=== PATIENT | male | born 1935 | race Caucasian/White ===

== ENCOUNTER 2017-02-04 19:23 | Emergency (ER) | payer MEDICARE ==
--- NOTE | 2017-02-04 19:43 | Emergency Department Record ---
History of Present Illness - General Chief Complaint: Abdominal Pain Stated Complaint: CHEST PAIN Time Seen by Provider: 02/04/17 19:27 Source: Patient Mode of Arrival: Ambulatory Limitations: No limitations - History of Present Illness Initial Comments: 81 yo male presents to ED with a CC of a "gut ache" that radiates up to the chest. Patient describes his pain symptoms as a "pressure", reports that he has not had a BM in 3 days. Patient denies previous heart or lung problems, but does report history of ulcerative colitis with his last flare being several years ago. Patient denies fevers, chills, or recent illness, does report nausea and vomiting x 1. MD Complaint: Abdominal pain Onset/Timin -: Minutes(s) Location: Diffuse Severity: Moderate Quality: Fullness Consistency: Constant, Getting worse Worsens With: Eating Associated Symptoms: Vomiting - Related Data Home Medications Medication Instructions Recorded Confirmed Last Taken Aspirin [Ecotrin] 325 mg PO BID 02/04/17 02/04/17 Unknown Atorvastatin Calcium [Lipitor] 10 mg PO QHS 02/04/17 02/04/17 Unknown Calcium Carbonate/Vitamin D3 1 each PO DAILY 02/04/17 02/04/17 Unknown [Calcium 500-Vit D3 600 Tablet] Dexlansoprazole [Dexilant] 60 mg PO DAILY 02/04/17 02/04/17 Unknown Losartan/Hydrochlorothiazide 1 each PO DAILY 02/04/17 02/04/17 Unknown [Losartan-Hctz 50-12.5 mg Tab] Mesalamine [Apriso] 0.375 gm PO BID 02/04/17 02/04/17 Unknown Thiamine HCl [Vitamin B-1] 100 mg PO DAILY 02/04/17 02/04/17 Unknown Tolterodine Tartrate [Detrol LA] 4 mg PO DAILY 02/04/17 02/04/17 Unknown Topiramate [Topamax] 75 mg PO DAILY 02/04/17 02/04/17 Unknown Verapamil HCl [Verapamil ER] 120 mg PO BID 02/04/17 02/04/17 Unknown Vit C/Vit E AC/Lut/Copper/Zinc 1 tab PO DAILY 02/04/17 02/04/17 Unknown [PreserVision Lutein Softgel] Vitamin E 400 unit PO DAILY 02/04/17 02/04/17 Unknown Allergies Allergy/AdvReac Type Severity Reaction Status Date / Time No Known Drug Allergies Allergy Verified 08/13/15 16:20 Travel Screening - Travel/Exposure Within Last 30 Days Have you traveled within the last 30 days?: No Review of Systems Constitutional: Denies: Chills, Fever, Malaise, Night sweats Eyes: Denies: Eye discharge, Eye pain ENT: Denies: Congestion, Ear pain, Epistaxis Respiratory: Denies: Cough, Dyspnea Cardiovascular: Reports: Chest pain. Denies: Dyspnea on exertion Endocrine: Denies: Fatigue, Heat or cold intolerance Gastrointestinal: Reports: Abdominal pain, Constipation, Nausea, Vomiting Genitourinary: Denies: Incontinence, Retention Musculoskeletal: Denies: Arthralgia, Back pain, Gout, Joint swelling Skin: Denies: Bruising, Change in color Neurological: Denies: Abnormal gait, Confusion, Headache, Tingling Psychiatric: Denies: Anxiety Hematological/Lymphatic: Denies: Anemia, Blood Clots Past Medical History - SOCIAL HISTORY Smoking Status: Former smoker Alcohol Use: None Drug Use: None - RESPIRATORY Hx Respiratory Disorders: No - CARDIOVASCULAR Hx Cardio Disorders: Yes Hx CHF: Yes Hx Hypertension: Yes (CONTROLLED) Comment:: high cholesterol - NEURO Hx Neuro Disorders: Yes Hx of Migraines: Yes (since onset of topamax has very few magallanes) Hx Neuropathy: Yes (feet) - GI Hx GI Disorders: Yes Hx of Polyps: Yes (COLON) Comment:: ULCERATIVE COLITIS - Hx Genitourinary Disorders: No Comment:: occ leakage - ENDOCRINE Hx Endocrine Disorders: No - MUSCULOSKELETAL Hx Musculoskeletal Disorders: Yes Hx Arthritis: Yes (hips, knees and hands) - PSYCH Hx Psych Problems: No - HEMATOLOGY/ONCOLOGY Hx Hematology/Oncology Disorders: Yes Hx Cancer: Yes (skin-LLE melanoma) Family Medical History Any Significant Family History?: No Physical Exam - General General Appearance: Alert, Oriented x3, Cooperative, No acute distress (patient is resting comfortably on examination) Limitations: No limitations - Head Head exam: Atraumatic, Normocephalic, Normal inspection Head exam detail: negative: Abrasion, Contusion, Wells's sign, General tenderness, Hematoma, Laceration - Eye Eye exam: Normal appearance. negative: Conjunctival injection, Periorbital swelling, Periorbital tenderness, Scleral icterus - ENT Ear exam: negative: Auricular hematoma, Auricular trauma Nasal Exam: negative: Active bleeding, Discharge, Dried blood Mouth exam: negative: Drooling, Laceration, Tongue elevation - Neck Neck exam: Normal inspection. negative: Meningismus, Tenderness - Respiratory Respiratory exam: Normal lung sounds bilaterally. negative: Respiratory distress, Rhonchi, Stridor, Wheezes - Cardiovascular Cardiovascular Exam: Regular rate, Normal rhythm, Normal heart sounds - GI/Abdominal GI/Abdominal exam: Soft, Tenderness (mild, diffuse TTP on examiantion, no focal areas of tenderness, no rebound, no guarding symptoms). negative: Distended, Rebound, Rigid - Rectal Rectal exam: Deferred - exam: Deferred - Extremities Extremities exam: Normal inspection. negative: Calf tenderness, Pedal edema, Tenderness - Back Back exam: Denies: CVA tenderness (R), CVA tenderness (L) - Neurological Neurological exam: Alert, Normal gait, Oriented X3 - Psychiatric Psychiatric exam: Normal affect, Normal mood - Skin Skin exam: Normal color. negative: Abrasion Type of lesion: negative: abrasion Course Vital Signs 02/04/17 19:26 Temperature 97.6 F Pulse Rate 70 Pulse Rate [ 77 Pulse Ox Probe] Respiratory 18 Rate Blood Pressure 171/89 Blood Pressure 171/89 [Left Arm] Pulse Ox 97 - Reevaluation(s) Reevaluation #1: 02/04/17 19:38 EKG: NSR 77 RBBB, T wave inversion III, AVF Nonspecific ST changes V3-V6 Reevaluation #2: 02/04/17 19:42 Plan of care discussed with the patient, reports that his symptoms seem to originate in the abdomen. Will image the abdomen to exclude colitis/obstuction and obtain (2) sets of cardiac enzymes to exclude myocardial damage. Patient and SO agree with plan of care as discussed. Reevaluation #3: 02/04/17 20:56 Labs reviewed, Lipase 16136, potassium 3.1, labs are otherwise grossly unremarkable for an acute process. Potassium ordered for replacement. Patient is in CT currently. 02/04/17 20:59 Reevaluation #4: 02/04/17 21:47 CT Abdomen and Pelvis: Pancreatitis with gallstones/distended gallbladder present, no pericholecystic fluid is present, no wall thickening. renal cysts, 3.7 cm AAA. Reevaluation #5: 02/04/17 21:56 Patient and his SO updated on all results, would prefer transfer [facility] Case was discussed with Dr. Jacobo, will accept transfer. 02/04/17 22:30 Medical Decision Making - Lab Data Result diagrams: 02/04/17 19:30 02/04/17 19:30 Disposition Disposition: Transfer Clinical Impression: Hypokalemia, Gallstones Pancreatitis Qualifiers: Chronicity: acute Pancreatitis type: other Acute pancreatitis complication: unspecified Qualified Code(s): K85.80 - Other acute pancreatitis without necrosis or infection Disposition: Acute Care Hospital Transfer Transfer To: [facility] Reason For Transfer: Surgical Consultation, patient preference Accepting Physician: Dr. Taylor Time Discussed w/Accepting Physician: 22:30 Condition: (2) Stable Forms: Patient Portal Access Time of Disposition: 22:38
[2017-02-04 20:06] LABS: BASO % 0.6 % (0-6); EOS % 1.3 % (0-6); GRAN % 74.7 % (47-80); HEMOGLOBIN 15.3 gm/dl (14.0-18.0); LYMPH % 15.8 % (16-45); MEAN CELL VOLUME 98.9 fl (81-97); MEAN CORPUSCULAR HEMOGLOBIN 32.9 pg (27-33); MEAN CORPUSCULAR HGB CONC 33.3 g/dl (32-36); MEAN PLATELET VOLUME 10.3 fl (7.4-10.4); MONO % 7.6 % (0-9); PLATELET COUNT 259 K/uL (130-400); RED BLOOD COUNT 4.65 M/uL (4.40-5.70); RED CELL DISTRIBUTION WIDTH 13.4 % (11.5-14.5); WHITE BLOOD COUNT W/O DIFF 8.5 K/uL (4.2-12.2)
[2017-02-04 20:20] LABS: ALB/GLOB RATIO 1.4 (1.1-1.8); ALBUMIN 4.2 gm/dL (3.5-5.0); ALKALINE PHOSPHATASE 172 U/L (38-126); ALT/SGPT 45 U/L (21-72); ANION GAP 5.4 (7-16); AST/SGOT 64 U/L (17-59); BILIRUBIN,TOTAL 0.88 mg/dL (0.2-1.3); BLOOD UREA NITROGEN 22 mg/dL (9-20); CARBON DIOXIDE 25.6 mmol/L (22-30); CREATINE PHOSPHOKINASE 47 U/L (55-170); CREATININE 1.2 mg/dL (0.66-1.25); EST GLOMERULAR FILTRATION RATE > 60 ml/min; GLUCOSE,RANDOM 117 mg/dL (70-110); TOTAL PROTEIN 7.2 gm/dL (6.3-8.2)
[2017-02-04 20:32] LABS: URINE APPEARANCE CLEAR; URINE BILIRUBIN NEGATIVE (NEGATIVE); URINE BLOOD NEGATIVE (NEGATIVE); URINE COLOR YELLOW; URINE GLUCOSE (UA) NEGATIVE (NEGATIVE); URINE KETONE NEGATIVE (NEGATIVE); URINE LEUKOCYTE ESTERASE NEGATIVE (NEGATIVE); URINE NITRITE NEGATIVE (NEGATIVE); URINE PROTEIN NEGATIVE (NEGATIVE)
[2017-02-04 20:36] LABS: TROPONIN I < 0.012 ng/mL (0.00-0.034)
[2017-02-04] MEDS ORDERED: ONDANSETRON HCL IV 4 MG/2 ML VIAL IVP ONE (20:37)
[2017-02-04] MEDS ORDERED: MORPHINE SULFATE 5 MG/ML PFS IVP ONE ×2 (20:37→22:10)
[2017-02-04] MEDS ORDERED: POTASSIUM BICARB./CIT AC 25 MEQ EFF.TAB PO STA (20:57)
[2017-02-04 20:58] LABS: LIPASE 18039 U/L (23-300)
[2017-02-05] MEDS ORDERED: MORPHINE SULFATE 5 MG/ML PFS IVP ONE (01:45)
[2017-02-05] MEDS ORDERED: ONDANSETRON HCL IV 4 MG/2 ML VIAL IVP ONE (01:52)
--- NOTE | 2017-02-07 15:33 | CT SCAN REPORT ---
EXAM: CT SCAN ABDOMEN/PELVIS W CONTRAST HISTORY: ABDOMINAL PAIN. TECHNIQUE: CT of the abdomen and pelvis performed following intravenous contrast administration. 100 mL of Omnipaque-300 contrast is used for this examination. COMPARISON: None. FINDINGS: The lung bases are unremarkable. The gallbladder is distended. There are probably faint calcified gallstones within the dependent portion of the gallbladder. There are inflammatory changes seen throughout the pancreas suggesting pancreatitis. No pancreatic mass or pseudocyst seen. The common bile duct is not dilated. There is probably mild periportal edema. No hepatic mass. Spleen is unremarkable. There are no adrenal lesions seen. There is bilateral renal function. There are bilateral renal cysts. No renal mass or hydronephrosis. There are atherosclerotic changes in the abdominal aorta. There is an aneurysm of the distal abdominal aorta just above the aortic bifurcation. The maximum anterior/posterior dimension is approximately 3.8 cm. There is diverticulosis without CT evidence for diverticulitis. There is no pelvic mass, abscess, or adenopathy. There is no free air or free fluid identified. IMPRESSION: 1. THERE ARE INFLAMMATORY CHANGES IN THE PANCREAS SUGGESTING PANCREATITIS. NO PANCREATIC MASS OR PSEUDOCYST. 2. THE GALLBLADDER IS DISTENDED. THERE ARE PROBABLY FAINT CALCIFIED GALLSTONES IN THE GALLBLADDER. NO PERICHOLECYSTIC FLUID OR GALLBLADDER WALL THICKENING. 3. PROBABLE MILD PERIPORTAL EDEMA, NONSPECIFIC. 4. BILATERAL RENAL CYSTS. 5. 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 6. DIVERTICULOSIS WITHOUT CT EVIDENCE FOR DIVERTICULITIS. 7. NOT MENTIONED ABOVE, A FOCAL FAT DENSITY STRUCTURE IS SEEN ALONG THE DESCENDING PORTION OF THE DUODENUM MEASURING ABOUT 2.5 CM IN SIZE, POSSIBLY A LIPOMA. JOB NUMBER: [id number] MTDD
== END 2017-02-05 02:00 | disposition short-term general hospital (02) ==
LOC: ER 19:23
DX: K85.80 Other acute pancreatitis without necrosis or infection (principal); I50.9 Heart failure, unspecified; R11.10 Vomiting, unspecified; K85.10 Biliary acute pancreatitis without necrosis or infection; E87.6 Hypokalemia; K82.8 Other specified diseases of gallbladder; K51.90 Ulcerative colitis, unspecified, without complications; I10 Essential (primary) hypertension
CPT/HCPCS: 74177; 80053; 81003; 82550; 82553; 83690; 84484; 85025; 93005; 93010; 96374; 96375; 96376; 99284; 99285; J2405

== ENCOUNTER 2017-02-21 16:49 | Inpatient (IN) | payer MEDICARE ==
[2017-02-23] MEDS ORDERED: ALBUTEROL HFA 8 GM INHALER INH PRN (16:11)
[2017-02-23] MEDS ORDERED: VOLTAREN 1% TOP PRN (16:13)
[2017-02-23] MEDS ORDERED: ZINC OXIDE 28.35 GM TUBE TOP PRN (21:42)
[2017-02-23] MEDS: AMLODIPINE BESYLATE 5MG TAB PO SCH (22:36)
[2017-02-23] MEDS: PANTOPRAZOLE SODIUM 40 MG TABLET PO SCH (22:37)
[2017-02-23] MEDS: TOPIRAMATE 25MG TABLET PO SCH (22:37)
[2017-02-23] MEDS: DIPHENHYDRAMINE HCL 25 MG CAPSULE PO PRN (22:38)
[2017-02-24] MEDS ORDERED: MULTIVITAMINS/MINERALS TABLET PO SCH (10:00)
--- NOTE | 2017-02-24 10:00 | Rehab Evaluation ---
Patient Information - Patient Information Diagnosis: Deconditioning due to lengthy stay in hospital for acute pancreatitis Ordered Treatment: OT Evaluate and Treat Status: Initial Evaluation History: Detail (Patient admitted secondary to deconditioning after stay at [facility] lasting 02/05/17-02/23/17.) Past Medical/Surgical Hx: PAST MEDICAL/SURGICAL HISTORY Past Surgical History KNEE SCOPE-Right NASAL SX R RTC REPAIR (REFLEX SYMPATHETIC DYSTOPHY) C-SCOPE PMH - Respiratory Hx Respiratory Disorders No PMH - Cardiovascular Hx Cardiovascular Disorders Yes Hx Congestive Heart Failure Yes Hx Hypertension Yes: CONTROLLED Hx of Migraines Yes: since onset of topamax has very few magallanes Comment: high cholesterol PMH - Neuro Hx Neurological Disorders Yes Hx Neuropathy Yes: feet Hx Seizures No PMH - GI Hx Gastrointestinal Disorders Yes Comment: ULCERATIVE COLITIS PMH - Hx Genitourinary Disorders No Comment: occ leakage PMH - Endocrine Hx Endocrine Disorders No PMH - Musculoskeletal Hx Musculoskeletal Disorders Yes Hx Arthritis Yes: hips, knees and hands PMH - Psych Hx Psychiatric Problems No PMH - Hematology/Oncology Hx Hematology/Oncology Yes Disorders Hx Cancer Yes: skin-LLE melanoma Premorbid Status: Detail (Patient was independent with all ADLs 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 He amb. without device and has no AD at home.) Social History: Detail (Patient lives with spouse in a 1-story house with finished basement and 2-3 steps to enter home. Laundry is in the basement but spouse is responsible for this. Patient does use basement. There is a bathroom w / walk-in shower in the basement but patient primarily uses the tub/shower combo with curtain enclosure on main level. Patient stands to shower using fixed shower head. There are grab bars in shower but none around standard toilet. Patient is responsible for outdoor yard work, snow removal, and lawn care. Patient has supportive , daughter (lives in [place]), and son (lives in [place], [place]).) Precautions: [place], Fall - Time With Patient Total Time Spent With Patient (Min): 25 Treatment Procedures: Detail (OT Evaluation - LOW) Subjective Information - Subjective Information Per Patient Objective Data - Pain Pain Present: No Pain Intensity: 0 Pain Scale Used: Numeric (1 - 10) - Mental Status Patient Orientation: Oriented x3 - Visual Perception Appears within normal limits for therapeutic activities - ROM Within normal limits (BUE's (Patient had Rotator Cuff Repair sx about 5 years ago on the Right shld)) - Strength/Tone Not within normal limits (Patient grossly 4/5 for Eddie shld flex/abd, elbow flex/ ext, wrist flex/ext. Mild weakness in Eddie gross grasp.) - Bed Mobility Independent - Transfers Independent - Balance Balance Sitting: Good - Sensation Intact - Gait Detail (Patient amb 65 feet without AD and with CGA. No LOB or c/o dizziness. Patient appeared stable during amb. Feel patient could amb with supervision but will allow PT to further evaluate.) - ADL's/IADL's Detail (Patient able to don slip on sandals ind. after initial setup.) Therapy Assessment - Therapy Assessment Detail (Patient doing well. He presents with generalized BUE weakness and decreased endurance for ADLs. Feel he would benefit from skilled OT to further evaluate safety with ADLs and for overall initiation and establishment of UE strengthening HEP.) Problem List - Problem List Occupational Therapy Problem List: Detail (1. Decreased endurance to complete ADLs 2. BUE weakness 3. B Gross grasp weakness) Goals - Goals Occupational Therapy Goals: 1. Patient to be Ind. with LB drsg. 2. Patient to complete ADLs w/o c/o fatigue or need for RB's. 3. Patient to be Ind w/ BUE HEP Prognosis - Prognosis Good Plan - Plan Occupational Therapy Plan: Patient to be seen by OT to further evaluate safety with ADLs and for establishment of BUE HEP. Patient to be seen by OT 2-4x a week M-F.
[2017-02-24] MEDS: CALCIUM CARB/VITAMIN D 500MG/200IU PO SCH (11:44)
[2017-02-24] MEDS: OXYBUTYNIN CHLORIDE 5MG TABLET PO SCH ×2 (11:47→21:28)
[2017-02-24] MEDS: FUROSEMIDE 20 MG TABLET PO SCH (11:47)
[2017-02-24] MEDS: PANTOPRAZOLE SODIUM 40 MG TABLET PO SCH ×2 (11:48→21:28)
[2017-02-24] MEDS: LOSARTAN POTASSIUM 100 MG TABLET PO SCH (11:48)
[2017-02-24] MEDS: THIAMINE MONONITRATE 100 MG TABLET PO SCH (11:48)
--- NOTE | 2017-02-24 12:48 | History & Physical ---
History of Present Illness - Date Date of Service for History & Physical: 02/24/17 - History of Present Illness Admitting Diagnosis: Deconditioning due to Biliary Pancreatitis History of Present Illness: 81 y/o male admitted to [facility] for deconditioning following hospitalization for acute biliary pancreatitis and mesenteric aneurysm rupture. Past medical history includes CHF, HTN, migraines, peripheral neuropathy, UC, occasional urine incontinence, arthritis, LLE melanoma Past Surgical History KNEE SCOPE-Right NASAL SX R RTC REPAIR (REFLEX SYMPATHETIC DYSTOPHY) C-SCOPE Prior to arrival was transferred form [facility] ED 02/05/17 for abdominal pain and significantly elevated lipase. While at [facility] Megan Macario was diagnosed with acute pancreatitis and gall stones per CT scan. Initial lipase 18,000. Does not drink ETOH, has never had pancreatitis before, is not diabetic. 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 His stay was complicated by episode of hypotension and sudden drop in Hgb. 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 Bleeding and Hgb improved spontaneously. Was nutritionally supplemented with TPN and advanced to low fat diet. Underwent EGD 02/22 for increase in bilirubin and lipase levels which showed 3 small ulcers in stomach that were biopsied and sent to pathology. Plan to repeat EGD with EUS/ ERCP in 2 week with potential of lap cherie. Labs at discharge Hgb 9.3, Lipase 111, alk phos 278, total bilirubin 2.o, protein 4.5, albumin 2.6, AST 64, ALT 68, BUN 22, Cr 1.02 Goal of care: therapy with return to prevoius independent function at home with his . 02/24/17- resting in bed comfortably, denies pain. Does report continues to have loose stools twice daily, appetite is slowly improving but not back to 100%. Is feeling weak but reports overall feels better day by day. PCP: Dr Allen General surgeon: Dr Carmen General - Cognitive Patterns Speech: Soft Thought Process: Intact Thought Content: Normal Orientation: Oriented x3 Brief Interview for Mental Status Score: 14 - Communication Preferred Language?: Yemeni Level of Education: High School Preferred Method of Learning: Seeing, Doing, Reading Comprehension Ability: No Impairment Able to Read: Yes Able to Write: Yes Select best description of speech pattern: Clear Speech Ability to express ideas and wants: Understood Understanding verbal content: Understands - Mood and Behavior Patterns Appearance: Well Groomed Mood: Normal Attitude: Cooperative Motor Activity: Calm Affect: Appropriate Hallucinations: Denies - Patient Health Questionnaire (PHQ-9) Little interest or pleasure in doing things frequency: Never or 1 day Feeling down, depressed, or hopeless frequency: 2-6 days Trouble falling/staying asleep or sleeping to much frequency: 12-14 days Feeling tired or having little energy frequency: 12-14 days Poor appetite or overeating frequency: 12-14 days Feeling bad about yourself frequency: Never or 1 day Trouble concentrating on things frequency: 2-6 days Moving/Speaking slowly or fidgety/restless frequency: Never or 1 day Thoughts that you would be better off frequency: Never or 1 day Affect of above symptoms on daily life: Not difficult at all - Psychosocial Well-Being Usual Living Arrangement: Spouse Relationship Status: Current and Past Employment History: Retired 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 Verbalizes Interest in Activities During Stay: No Specify Interests: Still unsure. Personality: Introverted States they do not want to participate in group activities: Yes Patient Involved in the Community: Yes Describe Involvement: On Foundation/Board of [facility]. Patients Leisure Activities Prior to Admission: Yardwork/golf Plans to Return to the Following Leisure Activities: Hopefully. - Physical Functioning Activity Level: Up as tolerated Turning: Self ad ortiz ROM Ability: Within Normal Limits Assistive Devices: None Ambulation Ability: Independent Bed Mobility: Independent Transfer Ability: Independent Bathing Ability: Needs Assist Personal Hygiene: Needs Assist Dressing Ability: Needs Assist Eating (Feeding) Ability: Independent Toileting Ability: Independent Administer Own Medication: Independent - Continence Bowel Pattern: Diarrhea Bladder Pattern: Dribbling, Frequency Urinary Incontinence: Urge - Dental Status Unable to examine: No Broken or loosely fitting full or partial dentures: No No natural teeth or tooth fragment(s) (edentulous): No Abnormal mouth tissue (ulcers, masses, oral lesions, etc.): No Obvious or likely cavity or broken natural teeth: No Inflamed or bleeding gums or loose natural teeth: No Mouth/facial pain, discomfort or difficulty chewing: No - Nutrition Screening Poor oral intake > 1 week: Yes Unplanned weight loss in specified time frame: Yes Nutrition Support via tube feedings or parenteral nutrition: Yes Pressure Ulcer: No Significantly underweight define as BMI <18.5 kg/m2: No Albumin <2.5mg/dL: No Persistent nausea/vomiting/diarrhea >3 days: No Difficulty chewing/swallowing/mouth sores: No Admitting Diagnosis: No Nutrition Risk Score: High Risk Review of Systems Constitutional: Reports: Weakness ENT: Denies: Congestion Respiratory: Denies: Cough Cardiovascular: Denies: Chest pain Gastrointestinal: Reports: Diarrhea. Denies: Abdominal pain, Nausea, Vomiting Genitourinary: Reports: Incontinence. Denies: Dysuria, Frequency Musculoskeletal: Denies: Arthralgia, Back pain, Myalgia Skin: Denies: Rash Neurological: Reports: Weakness. Denies: Headache Psychiatric: Denies: Anxiety, Depression Past Medical History - SOCIAL HISTORY Smoking Status: Former smoker Alcohol Use: Rare Drug use: None - SURGICAL HISTORY Past Surgical History: KNEE SCOPE-Right. NASAL SX. R RTC REPAIR (REFLEX SYMPATHETIC DYSTOPHY). C-SCOPE - RESPIRATORY Hx Respiratory Disorders: No - CARDIOVASCULAR Hx Cardio Disorders: Yes Hx CHF: Yes Hx Hypertension: Yes (CONTROLLED) Comment:: high cholesterol - NEURO Hx Seizures: No - GI Hx GI Disorders: Yes Hx of Polyps: Yes (COLON) Comment:: ULCERATIVE COLITIS - Hx Genitourinary Disorders: No Comment:: occ leakage - ENDOCRINE Hx Endocrine Disorders: No - MUSCULOSKELETAL Hx Musculoskeletal Disorders: Yes Hx Arthritis: Yes (hips, knees and hands) - PSYCH Hx Psych Problems: No - HEMATOLOGY/ONCOLOGY Hx Hematology/Oncology Disorders: Yes Hx Cancer: Yes (skin-LLE melanoma) Family Medical History Any Significant Family History?: No Hx Heart Disease: Father, Mother Hx Stroke: Mother H&P Meds/Allergies - Allergies Allergies: Allergies Allergy/AdvReac Type Severity Reaction Status Date / Time No Known Drug Allergies Allergy Verified 08/13/15 16:20 - Home Medications Home Medications Medication Instructions Recorded Confirmed Last Taken Aspirin [Ecotrin] 325 mg PO BID 02/04/17 02/04/17 Unknown Atorvastatin Calcium [Lipitor] 10 mg PO QHS 02/04/17 02/04/17 Unknown Calcium Carbonate/Vitamin D3 1 each PO DAILY 02/04/17 02/04/17 Unknown [Calcium 500-Vit D3 600 Tablet] Dexlansoprazole [Dexilant] 60 mg PO DAILY 02/04/17 02/04/17 Unknown Losartan/Hydrochlorothiazide 1 each PO DAILY 02/04/17 02/04/17 Unknown [Losartan-Hctz 50-12.5 mg Tab] Mesalamine [Apriso] 0.375 gm PO BID 02/04/17 02/04/17 Unknown Thiamine HCl [Vitamin B-1] 100 mg PO DAILY 02/04/17 02/04/17 Unknown Tolterodine Tartrate [Detrol LA] 4 mg PO DAILY 02/04/17 02/04/17 Unknown Topiramate [Topamax] 75 mg PO DAILY 02/04/17 02/04/17 Unknown Verapamil HCl [Verapamil ER] 120 mg PO BID 02/04/17 02/04/17 Unknown Vit C/Vit E AC/Lut/Copper/Zinc 1 tab PO DAILY 02/04/17 02/04/17 Unknown [PreserVision Lutein Softgel] Vitamin E 400 unit PO DAILY 02/04/17 02/04/17 Unknown - Active Medications Active Medications: Current Medications Albuterol Sulfate (Ventolin Hfa) 2 puff INH Q6H PRN PRN Reason: WHEEZING Amlodipine Besylate (Norvasc) 10 mg PO QHS [facility] Last Admin: 02/23/17 22:36 Dose: 10 mg Calcium/Vitamin D (Calcium 500+D Tablet) 1 tab PO DAILY [facility] Last Admin: 02/24/17 11:44 Dose: 1 tab Diphenhydramine HCl (Benadryl Capsule) 25 mg PO QHS PRN PRN Reason: INSOMNIA Last Admin: 02/23/17 22:38 Dose: 25 mg Furosemide (Lasix) 20 mg PO DAILY [facility] Last Admin: 02/24/17 11:47 Dose: 20 mg Losartan Potassium (Losartan Potassium) 100 mg PO DAILY [facility] Last Admin: 02/24/17 11:48 Dose: 100 mg Multivitamins/Minerals (Centrum) 1 tab PO DAILY [facility] Last Admin: 02/24/17 11:46 Dose: 1 tab Oxybutynin Chloride (Ditropan) 5 mg PO BID [facility] Last Admin: 02/24/17 11:47 Dose: 5 mg Pantoprazole Sodium (Protonix) 40 mg PO BID [facility] Last Admin: 02/24/17 11:48 Dose: 40 mg Patient Own Med: (Voltaren 1% Gel) 2 each TOP QID PRN PRN Reason: BACK PAIN Topiramate (Topiramate) 75 mg PO QHS [facility]SE[facility] Last Admin: 02/23/17 22:37 Dose: 75 mg Zinc Oxide (Desitin) 28.35 gm TOP BID PRN PRN Reason: RASH Physical Exam - Vital Signs Vital Signs: Vital Signs - Last 24 Hrs Temp Pulse Resp BP Pulse Ox 02/24/17 10:00 98.0 F 76 16 121/74 97 02/23/17 20:04 97.9 F 84 16 139/81 97 - General General Appearance: Alert, Oriented x3, No acute distress Limitations: No limitations - Head Head exam: Atraumatic - Eye Eye exam: Normal appearance, Periorbital swelling - ENT ENT exam: Normal exam, Mucous membranes moist, Normal external ear exam, Normal orophraynx, TM's normal bilaterally Ear exam: Normal external inspection. negative: External canal tenderness Nasal Exam: Normal inspection. negative: Discharge, Sinus tenderness Mouth exam: Normal external inspection, Tongue normal Teeth exam: Normal inspection. negative: Dental caries Throat exam: Normal inspection. negative: Tonsillar erythema, Tonsillar exudate - Respiratory Respiratory exam: Normal lung sounds bilaterally - Cardiovascular Cardiovascular Exam: Regular rate, Normal rhythm, Normal heart sounds Peripheral Pulses: 2+: Dorsalis Pedis (R), Dorsalis Pedis (L) - GI/Abdominal GI/Abdominal exam: Soft, Hyperactive bowel sounds. negative: Tenderness - Rectal Rectal exam: Deferred - exam: Deferred - Extremities Extremities exam: Normal inspection, Full ROM, Normal capillary refill. negative: Tenderness - Back Back exam: Reports: Normal inspection, Full ROM. Denies: Muscle spasm, Rash noted, Tenderness - Neurological Neurological exam: Alert, CN II-XII intact, Oriented X3 - Psychiatric Psychiatric exam: Normal affect, Normal mood - Skin Skin exam: Dry, Intact, Normal color, Warm Discharge Potential - Discharge Needs Community Services Used Prior to Admission: None Patient Discharge Plan Description: Return Home Community Services Needed at Discharge: None Plan - Swing Bed Certification Initial Certification Due: 02/23/17 14 Day Re-Cert Due: 03/09/17 44 Day Re-Cert Due: 04/08/17 74 Day Re-Cert Due: 05/08/17 - Detailed Diagnosis and Plan (1) Generalized weakness Current Visit: Yes Status: Acute Base Code: R53.1 - WEAKNESS Comment: [birth year]22 y/o male admitted for generalized weakbness after 3 week hospitalization at [facility] for acute biliary pancreatitis complicated by mesenteric rupture, anemia, hypotension and need for short term TPN nutrition - PT/OT - nursing to encourage frequent ambulation - recheck CBC/CMP/total bilirubin to trend - dietary consult for low protein/albumin. Did receive TPN for short time at [facility] - follow up with Dr Carmen in 2 weeks for repeat EGD/ERCP and potential for lap cherie - goals of care to return home to independent function, lives with (2) Protein calorie malnutrition Current Visit: Yes Status: Acute Base Code: E46 - UNSPECIFIED PROTEIN- CALORIE MALNUTRITION Comment: [birth year]81 y/o male admitted for generalized weakbness after 3 week hospitalization at [facility] for acute biliary pancreatitis complicated by mesenteric rupture, anemia, hypotension and need for short term TPN nutrition - PT/OT - nursing to encourage frequent ambulation - recheck CBC/CMP/total bilirubin to trend - dietary consult for low protein/albumin. Did receive TPN for short time at [facility] - follow up with Dr Carmen in 2 weeks for repeat EGD/ERCP and potential for lap cherie - goals of care to return home to independent function, lives with (3) Pancreatitis Current Visit: No Status: Acute Qualifiers: Chronicity: acute Pancreatitis type: other Acute pancreatitis complication: unspecified Qualified Code(s): K85.80 - Other acute pancreatitis without necrosis or infection Base Code: K85.90 - ACUTE PANCREATITIS WITHOUT NECROSIS OR INFECTION, UNSP Comment: [birth year]81 y/o male admitted for generalized weakbness after 3 week hospitalization at [facility] for acute biliary pancreatitis complicated by mesenteric rupture, anemia, hypotension and need for short term TPN nutrition - PT/OT - nursing to encourage frequent ambulation - recheck CBC/CMP/total bilirubin to trend - dietary consult for low protein/albumin. Did receive TPN for short time at [facility] - follow up with Dr Carmen in 2 weeks for repeat EGD/ERCP and potential for lap cherie - follow up [facility] 2 weeks - goals of care to return home to independent function, lives with (4) HTN (hypertension) Current Visit: Yes Status: Acute Base Code: I10 - ESSENTIAL (PRIMARY) HYPERTENSION Comment: 02/24/17- hypotensive episode in hospital now resolved. Continue home meds - keep SBP <140 - continue norvasc, ARB, Lasix (5) DVT prophylaxis Current Visit: Yes Status: Acute Base Code: [id number] - Comment: 02/24/17- nursing to encourage frequent ambulation (6) Full code status Current Visit: Yes Status: Acute Base Code: Z78.9 - OTHER SPECIFIED HEALTH STATUS Comment: 02/24/17- will remain full code during this hospitalization
--- NOTE | 2017-02-24 13:15 | Rehab Evaluation ---
Patient Information - Patient Information Diagnosis: Deconditioning due to lengthy stay in hospital for acute pancreatitis Ordered Treatment: PT Evaluate and Treat Status: Initial Evaluation Surgery: No History: Detail (Patient admitted secondary to deconditioning after stay at [facility] lasting 02/05/17-02/23/17. 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.) Past Medical/Surgical Hx: PAST MEDICAL/SURGICAL HISTORY Past Surgical History KNEE SCOPE-Right NASAL SX R RTC REPAIR (REFLEX SYMPATHETIC DYSTOPHY) C-SCOPE PMH - Respiratory Hx Respiratory Disorders No PMH - Cardiovascular Hx Cardiovascular Disorders Yes Hx Congestive Heart Failure Yes Hx Hypertension Yes: CONTROLLED Hx of Migraines Yes: since onset of topamax has very few magallanes Comment: high cholesterol PMH - Neuro Hx Neurological Disorders Yes Hx Neuropathy Yes: feet Hx Seizures No PMH - GI Hx Gastrointestinal Disorders Yes Comment: ULCERATIVE COLITIS PMH - Hx Genitourinary Disorders No Comment: occ leakage PMH - Endocrine Hx Endocrine Disorders No PMH - Musculoskeletal Hx Musculoskeletal Disorders Yes Hx Arthritis Yes: hips, knees and hands PMH - Psych Hx Psychiatric Problems No PMH - Hematology/Oncology Hx Hematology/Oncology Yes Disorders Hx Cancer Yes: skin-LLE melanoma Premorbid Status: Detail (Patient was independent with all ADLs and IADLs [employer]. He amb. without device and has no AD at home.) Social History: Detail (Patient lives with spouse in a 1-story house with finished basement and 2-3 steps to enter home. Laundry is in the basement but spouse is responsible for this. Patient does use basement. There is a bathroom w / walk-in shower in the basement but patient primarily uses the tub/shower combo with curtain enclosure on main level. Patient stands to shower using fixed shower head. There are grab bars in shower but none around standard toilet. Patient is responsible for outdoor yard work, snow removal, and lawn care. Patient has supportive , daughter (lives in [place]), and son (lives in [place], [place]).) Precautions: Icard, Fall - Time With Patient Total Time Spent With Patient (Min): 30 Treatment Procedures: Detail (PT Evaluation) Subjective Information - Subjective Information Per Patient (Pt lying reclined in bed upon arrival, awake/alert. Cooperative for evaluation.) Objective Data - Pain Pain Present: No - Mental Status Patient Orientation: Oriented x3 - Visual Perception Appears within normal limits for therapeutic activities - ROM Within normal limits (In hips, knees and ankles. See OT evaluation for UE ROM.) - Strength/Tone Not within normal limits (4/5 strength in B hip flexion, abduction, adduction; 3 +/5 in B hip extension; 4+/5 in B knee flexion and extension, B ankle df.) - Coordination Appears within normal limits for therapeutic activities - Bed Mobility Independent - Transfers Independent - Balance Balance Sitting: Good Balance Standing: Good (50/56 on Ramirez Balance test, difficulty w/tandem stance and single limb stance; pivot turn 360 degrees in more than 4 seconds.) - Sensation Deficit (Neuropathy in B feet.) - Gait Detail (Ambulated w/SBA w/o assistive device about 50+ feet w/o LOB.) Therapy Assessment - Therapy Assessment Detail (Pt exhibits mild strength impairments of B proximal LE's, decreased activity tolerance consistent w/prolonged hospitalization. He is a good candidate for inpatient rehabilitation.) Patient Education - Patient Education Teaching Topic: Exercise/Activity Response: Reinforcement Needed, Verbalize Understanding Teaching Method: Discussion Teaching Recipient: Patient Barriers To Learning: None Problem List - Problem List Physical Therapy Problem List: Detail (1. Proximal LE weakness 2. Impaired activity tolerance 3. Difficulty w/higher level balance tasks.) Occupational Therapy Problem List: Detail (1. Decreased endurance to complete ADLs 2. BUE weakness 3. B Gross grasp weakness) Goals - Goals Physical Therapy Goals: 1. Independent w/basic HEP. 2. Exhibit 4+/5 strength in B proximal LE muscle groups for stability w/ambulation. 3. Safely and independently ambulate 300 feet w/o assistive device, w/o undue fatigue. 4. Tolerate 20 minutes of therapeutic exercise w/o undue fatigue. Occupational Therapy Goals: 1. Patient to be Ind. with LB drsg. 2. Patient to complete ADLs w/o c/o fatigue or need for RB's. 3. Patient to be Ind w/ BUE HEP Prognosis - Prognosis Good Plan - Plan Physical Therapy Plan: Pt to be seen 1-2 times daily M-F for therapeutic exercise for LE strengthening, gait and balance training, endurance training to facilitate safe return to home environment. Occupational Therapy Plan: Patient to be seen by OT to further evaluate safety with ADLs and for establishment of BUE HEP. Patient to be seen by OT 2-4x a week M-F.
[2017-02-24] MEDS: PSYLLIUM HUSK/ASPARTAME 3.4 GM POWD.PACK PO SCH (16:16)
[2017-02-24] MEDS: APRISO 0.375 GM PO SCH (16:17)
--- NOTE | 2017-02-24 17:36 | Physical Therapy Tx Note ---
Physical Therapy Tx Note - Treatment Note Tolerated: Good Total Time Spent With Patient: 35 Physical Therapy Tx Note: Detail (Pt reclined in bed upon arrival, awake and cooperative for therapy. Performed 10 reps each of supine SLR, hip adduction w/ pillow, seated LAQ, hamstring curls w/red theraband, hip abduction w/red theraband. Ambulated w/CGA/SBA from bedside to nrsg station and return to bedside (about 130 feet) w/o assistive device. Performed 10 reps each of standing hip flexion, hip abduction, hip extension, knee flexion, heel raises, and toe raises. Returned to bed independently. Reported mild fatigue. Issued written exercise program to do over weekend, verbalized good understanding. Encouraged frequent.) Physical Therapy Problem List: Detail (1. Proximal LE weakness 2. Impaired activity tolerance 3. Difficulty w/higher level balance tasks.) Physical Therapy Goals: 1. Independent w/basic HEP. 2. Exhibit 4+/5 strength in B proximal LE muscle groups for stability w/ambulation. 3. Safely and independently ambulate 300 feet w/o assistive device, w/o undue fatigue. 4. Tolerate 20 minutes of therapeutic exercise w/o undue fatigue. Prognosis: Good Physical Therapy Plan: Pt to be seen 1-2 times daily M-F for therapeutic exercise for LE strengthening, gait and balance training, endurance training to facilitate safe return to home environment.
[2017-02-24] MEDS: TOPIRAMATE 25MG TABLET PO SCH (21:27)
[2017-02-24] MEDS: DIPHENHYDRAMINE HCL 25 MG CAPSULE PO PRN (21:27)
[2017-02-24] MEDS: AMLODIPINE BESYLATE 5MG TAB PO SCH (21:28)
[2017-02-24] MEDS: PRESERVISION PO SCH (21:28)
[2017-02-25] MEDS: OXYBUTYNIN CHLORIDE 5MG TABLET PO SCH ×2 (10:07→21:08)
[2017-02-25] MEDS: THIAMINE MONONITRATE 100 MG TABLET PO SCH (10:07)
[2017-02-25] MEDS: PSYLLIUM HUSK/ASPARTAME 3.4 GM POWD.PACK PO SCH (10:07)
[2017-02-25] MEDS: APRISO 0.375 GM PO SCH ×2 (10:07→21:11)
[2017-02-25] MEDS: LOSARTAN POTASSIUM 100 MG TABLET PO SCH (10:07)
[2017-02-25] MEDS: CALCIUM CARB/VITAMIN D 500MG/200IU PO SCH (10:07)
[2017-02-25] MEDS: FUROSEMIDE 20 MG TABLET PO SCH (10:07)
[2017-02-25] MEDS: PANTOPRAZOLE SODIUM 40 MG TABLET PO SCH ×2 (10:07→21:08)
[2017-02-25] MEDS: PRESERVISION PO SCH ×2 (10:08→21:11)
[2017-02-25] MEDS: AMLODIPINE BESYLATE 5MG TAB PO SCH (21:08)
[2017-02-25] MEDS: TOPIRAMATE 25MG TABLET PO SCH (21:09)
[2017-02-25] MEDS: DIPHENHYDRAMINE HCL 25 MG CAPSULE PO PRN (21:10)
[2017-02-26] MEDS: OXYBUTYNIN CHLORIDE 5MG TABLET PO SCH ×2 (09:58→21:15)
[2017-02-26] MEDS: CALCIUM CARB/VITAMIN D 500MG/200IU PO SCH (09:58)
[2017-02-26] MEDS: LOSARTAN POTASSIUM 100 MG TABLET PO SCH (09:58)
[2017-02-26] MEDS: FUROSEMIDE 20 MG TABLET PO SCH (09:58)
[2017-02-26] MEDS: PSYLLIUM HUSK/ASPARTAME 3.4 GM POWD.PACK PO SCH (09:59)
[2017-02-26] MEDS: PANTOPRAZOLE SODIUM 40 MG TABLET PO SCH ×2 (09:59→21:18)
[2017-02-26] MEDS: THIAMINE MONONITRATE 100 MG TABLET PO SCH (10:00)
[2017-02-26] MEDS: APRISO 0.375 GM PO SCH ×2 (10:04→21:17)
[2017-02-26] MEDS: PRESERVISION PO SCH ×2 (10:04→21:18)
[2017-02-26] MEDS: AMLODIPINE BESYLATE 5MG TAB PO SCH (21:15)
[2017-02-26] MEDS: TOPIRAMATE 25MG TABLET PO SCH (21:20)
[2017-02-26] MEDS: DIPHENHYDRAMINE HCL 25 MG CAPSULE PO PRN (21:23)
[2017-02-27 06:19] LABS: BASO % 0.6 % (0-6); EOS % 2.5 % (0-6); GRAN % 64.6 % (47-80); HEMATOCRIT 33.4 % (42.0-52.0); HEMOGLOBIN 10.8 gm/dl (14.0-18.0); LYMPH % 22.7 % (16-45); MEAN CELL VOLUME 100.6 fl (81-97); MEAN CORPUSCULAR HEMOGLOBIN 32.5 pg (27-33); MEAN CORPUSCULAR HGB CONC 32.3 g/dl (32-36); MEAN PLATELET VOLUME 9.8 fl (7.4-10.4); MONO % 9.6 % (0-9); PLATELET COUNT 237 K/uL (130-400); RED BLOOD COUNT 3.32 M/uL (4.40-5.70); RED CELL DISTRIBUTION WIDTH 15.3 % (11.5-14.5); WHITE BLOOD COUNT W/O DIFF 4.9 K/uL (4.2-12.2)
[2017-02-27 06:32] LABS: ALB/GLOB RATIO 1.1 (1.1-1.8); ALKALINE PHOSPHATASE 217 U/L (38-126); ALT/SGPT 69 U/L (21-72); ANION GAP 3.6 (7-16); AST/SGOT 56 U/L (17-59); BILIRUBIN,TOTAL 1.91 mg/dL (0.2-1.3); BLOOD UREA NITROGEN 19 mg/dL (9-20); CARBON DIOXIDE 25.4 mmol/L (22-30); CREATININE 1.2 mg/dL (0.66-1.25); EST GLOMERULAR FILTRATION RATE > 60 ml/min; GLUCOSE,RANDOM 99 mg/dL (70-110); TOTAL PROTEIN 5.8 gm/dL (6.3-8.2)
--- NOTE | 2017-02-27 08:24 | Occupational Therapy Tx Note ---
Occupational Therapy Tx Note - Treatment Note Tolerated: Good Total Time Spent With Patient: 25 Occupational Therapy Treatment Note: Detail (Pt awake upon arrival and dressed ind. per subjective report. He stated having bowel issues w/ upset stomach and loss of appetite but willing to participate in therapy. Ind w/ oral care, toilet H and clothing management. Patient ambulating Ind. throughout room without AD. States he ambulated around the inside of the hospital over the weekend. Pt was instructed and demo'd understanding of theraband ex's for BUE' s. He completed 2x10 Eddie of shld flex, shld abd, shld ext, shld add using green theraband. Cont to work on BUE strength and overall endurance.) Occupational Therapy Problem List: Detail (1. Decreased endurance to complete ADLs 2. BUE weakness 3. B Gross grasp weakness) Occupational Therapy Goals: 1. Patient to be Ind. with LB drsg. 2. Patient to complete ADLs w/o c/o fatigue or need for RB's. 3. Patient to be Ind w/ BUE HEP Prognosis: Good Occupational Therapy Plan: Patient to be seen by OT to further evaluate safety with ADLs and for establishment of BUE HEP. Patient to be seen by OT 2-4x a week M-F.
[2017-02-27] MEDS: PSYLLIUM HUSK/ASPARTAME 3.4 GM POWD.PACK PO SCH (09:12)
[2017-02-27] MEDS: FUROSEMIDE 20 MG TABLET PO SCH (09:12)
[2017-02-27] MEDS: THIAMINE MONONITRATE 100 MG TABLET PO SCH (09:12)
[2017-02-27] MEDS: PANTOPRAZOLE SODIUM 40 MG TABLET PO SCH ×2 (09:12→21:41)
[2017-02-27] MEDS: OXYBUTYNIN CHLORIDE 5MG TABLET PO SCH ×2 (09:12→21:42)
[2017-02-27] MEDS: CALCIUM CARB/VITAMIN D 500MG/200IU PO SCH (09:12)
[2017-02-27] MEDS: LOSARTAN POTASSIUM 100 MG TABLET PO SCH (09:12)
[2017-02-27] MEDS: PRESERVISION PO SCH ×2 (09:21→21:43)
[2017-02-27] MEDS: APRISO 0.375 GM PO SCH ×2 (09:21→21:42)
--- NOTE | 2017-02-27 11:41 | Physical Therapy Tx Note ---
Physical Therapy Tx Note - Treatment Note Tolerated: Good Total Time Spent With Patient: 30 Physical Therapy Tx Note: Detail (Pt asleep in bed upon arrival; awakened easily. Requested bathroom before exercise. Performed 10 reps each of standing LE ex: hip flexion, extension, abduction, knee flexion, heel raises, toe raises, mini-squats. Ambulated from room to near E.D., w/o assistive device , independently, about 335 feet. Took another bathroom break. Performed seated marching, LAQ w/red theraband, hamstring curls w/red theraband, hip abduction w/red theraband, hip adduction w/ball, x 10 reps each B. Independently donned/doffed shoes, independent back to bed. Left in bed w/ call light in reach.) Physical Therapy Problem List: Detail (1. Proximal LE weakness 2. Impaired activity tolerance 3. Difficulty w/higher level balance tasks.) Physical Therapy Goals: 1. Independent w/basic HEP. 2. Exhibit 4+/5 strength in B proximal LE muscle groups for stability w/ambulation. 3. Safely and independently ambulate 300 feet w/o assistive device, w/o undue fatigue. 4. Tolerate 20 minutes of therapeutic exercise w/o undue fatigue. Prognosis: Good Physical Therapy Plan: Pt to be seen 1-2 times daily M-F for therapeutic exercise for LE strengthening, gait and balance training, endurance training to facilitate safe return to home environment.
--- NOTE | 2017-02-27 14:33 | Physical Therapy Tx Note ---
Physical Therapy Tx Note - Treatment Note Tolerated: Good Total Time Spent With Patient: 15 Physical Therapy Tx Note: Detail (Patient states tired this afternoon. Patient transferred sit to and from stand independently. Patinet ambulated 13 feet x2 SBA x1. Patient transferred sit to and from stand independently. Patient ambulated 437 feet SBA x1. Patient performed the following exercises x30 seconds each on foam: feet together, feet together with eyes closed, feet together looking up and down, feet together looking side to side, and stride stance. Patient tolerated treatment well. Patient displays decreased balance with feet together looking side to side, feet together looking up and down, feet together with eyes closed, and stride stance. Patient was left seated on edge of bed with call light within reach.) Physical Therapy Problem List: Detail (1. Proximal LE weakness 2. Impaired activity tolerance 3. Difficulty w/higher level balance tasks.) Physical Therapy Goals: 1. Independent w/basic HEP. 2. Exhibit 4+/5 strength in B proximal LE muscle groups for stability w/ambulation. 3. Safely and independently ambulate 300 feet w/o assistive device, w/o undue fatigue. 4. Tolerate 20 minutes of therapeutic exercise w/o undue fatigue. Prognosis: Good Physical Therapy Plan: Pt to be seen 1-2 times daily M-F for therapeutic exercise for LE strengthening, gait and balance training, endurance training to facilitate safe return to home environment.
[2017-02-27] MEDS: AMLODIPINE BESYLATE 5MG TAB PO SCH (21:41)
[2017-02-27] MEDS: TOPIRAMATE 25MG TABLET PO SCH (21:43)
[2017-02-27] MEDS: DIPHENHYDRAMINE HCL 25 MG CAPSULE PO PRN (21:45)
[2017-02-28 06:35] LABS: ALB/GLOB RATIO 1.1 (1.1-1.8); ALBUMIN 2.8 gm/dL (3.5-5.0); ALKALINE PHOSPHATASE 193 U/L (38-126); ALT/SGPT 68 U/L (21-72); ANION GAP 5.9 (7-16); AST/SGOT 52 U/L (17-59); BILIRUBIN,TOTAL 1.65 mg/dL (0.2-1.3); BLOOD UREA NITROGEN 17 mg/dL (9-20); CARBON DIOXIDE 26.1 mmol/L (22-30); CREATININE 1.2 mg/dL (0.66-1.25); EST GLOMERULAR FILTRATION RATE > 60 ml/min; GLUCOSE,RANDOM 94 mg/dL (70-110); TOTAL PROTEIN 5.4 gm/dL (6.3-8.2)
--- NOTE | 2017-02-28 09:45 | Physical Therapy Tx Note ---
Physical Therapy Tx Note - Treatment Note Tolerated: Good Total Time Spent With Patient: 25 Physical Therapy Tx Note: Detail (The patient was in bed when PT arrived. Discussed the patient physical tasks he felt he needed to practice before going home. The patient's only concern was his appetite. The patient ambulated on 3 steps with use of one railing and reciprocal gait pattern with supervision for safety only. The patient completed a tub transfer ( stepping over tub) independently. The patient completed upper extremity exercises with green theraband including: bicep curls, tricep curls, rowing, shoulder extension and scapular protraction all x 20 reps and D1 PNF pattern x 10 reps. The patient tolerated treatment with no complaints of fatigue.) Physical Therapy Problem List: Detail (1. Proximal LE weakness 2. Impaired activity tolerance 3. Difficulty w/higher level balance tasks.) Physical Therapy Goals: 1. Independent w/basic HEP. 2. Exhibit 4+/5 strength in B proximal LE muscle groups for stability w/ambulation. 3. Safely and independently ambulate 300 feet w/o assistive device, w/o undue fatigue. 4. Tolerate 20 minutes of therapeutic exercise w/o undue fatigue. Physical Therapy Plan: Pt to be seen 1-2 times daily M-F for therapeutic exercise for LE strengthening, gait and balance training, endurance training to facilitate safe return to home environment.
[2017-02-28] MEDS: CALCIUM CARB/VITAMIN D 500MG/200IU PO SCH (10:50)
[2017-02-28] MEDS: FUROSEMIDE 20 MG TABLET PO SCH (10:50)
[2017-02-28] MEDS: PANTOPRAZOLE SODIUM 40 MG TABLET PO SCH ×2 (10:50→21:16)
[2017-02-28] MEDS: OXYBUTYNIN CHLORIDE 5MG TABLET PO SCH ×2 (10:50→21:16)
[2017-02-28] MEDS: LOSARTAN POTASSIUM 100 MG TABLET PO SCH (10:50)
[2017-02-28] MEDS: PRESERVISION PO SCH ×2 (10:51→21:18)
[2017-02-28] MEDS: PSYLLIUM HUSK/ASPARTAME 3.4 GM POWD.PACK PO SCH (10:51)
[2017-02-28] MEDS: APRISO 0.375 GM PO SCH ×2 (10:51→21:18)
[2017-02-28] MEDS: THIAMINE MONONITRATE 100 MG TABLET PO SCH (11:00)
--- NOTE | 2017-02-28 13:51 | Physical Therapy Tx Note ---
Physical Therapy Tx Note - Treatment Note Tolerated: Good Total Time Spent With Patient: 35 Physical Therapy Tx Note: Detail (Pt was resting upon arrival. Pt was eager to complete ex's. Pt states no pain, just weakness today. Pt transferred Independently with all bed and other transfers. Pt used bathroom Independently and all self care related. Pt was wheeled with wheelchair to upstairs in rehab for ex's. Pt completed ex's of standing hip abduction, adduction, hip ext., hip flexion x 15 bilateral with green theraband. Hamstring curls standing x 15 bilateral. Hip adduction supine with pink ball 5 " hold x 15. bridges with ball between knees x 15. supine hip abduction with red theraband at knees x 15. seated marches and LAQ x 15 bilateral. Standing ankle DF and PF x 15 bilateral and each. Gait independently x 150 ft. throughout therapy ex's with stand by guard. Pt completed ex's well without complaint.) Physical Therapy Problem List: Detail (1. Proximal LE weakness 2. Impaired activity tolerance 3. Difficulty w/higher level balance tasks.) Physical Therapy Goals: 1. Independent w/basic HEP. 2. Exhibit 4+/5 strength in B proximal LE muscle groups for stability w/ambulation. 3. Safely and independently ambulate 300 feet w/o assistive device, w/o undue fatigue. 4. Tolerate 20 minutes of therapeutic exercise w/o undue fatigue. Prognosis: Good Physical Therapy Plan: Pt to be seen 1-2 times daily M-F for therapeutic exercise for LE strengthening, gait and balance training, endurance training to facilitate safe return to home environment.
[2017-02-28] MEDS: DIPHENHYDRAMINE HCL 25 MG CAPSULE PO PRN (21:16)
[2017-02-28] MEDS: AMLODIPINE BESYLATE 5MG TAB PO SCH (21:17)
[2017-02-28] MEDS: TOPIRAMATE 25MG TABLET PO SCH (21:18)
[2017-03-01] MEDS: CALCIUM CARB/VITAMIN D 500MG/200IU PO SCH (09:34)
[2017-03-01] MEDS: FUROSEMIDE 20 MG TABLET PO SCH (09:34)
[2017-03-01] MEDS: OXYBUTYNIN CHLORIDE 5MG TABLET PO SCH (09:34)
[2017-03-01] MEDS: THIAMINE MONONITRATE 100 MG TABLET PO SCH (09:34)
[2017-03-01] MEDS: LOSARTAN POTASSIUM 100 MG TABLET PO SCH (09:34)
[2017-03-01] MEDS: PSYLLIUM HUSK/ASPARTAME 3.4 GM POWD.PACK PO SCH (09:35)
[2017-03-01] MEDS: PANTOPRAZOLE SODIUM 40 MG TABLET PO SCH (09:38)
[2017-03-01] MEDS: PRESERVISION PO SCH (09:39)
[2017-03-01] MEDS: APRISO 0.375 GM PO SCH (09:39)
[2017-03-01 10:06] LABS: BASO % 0.9 % (0-6); EOS % 1.8 % (0-6); HEMATOCRIT 34.5 % (42.0-52.0); LYMPH % 24.4 % (16-45); MEAN CELL VOLUME 101.5 fl (81-97); MEAN CORPUSCULAR HGB CONC 31.9 g/dl (32-36); MEAN PLATELET VOLUME 9.6 fl (7.4-10.4); MONO % 10.9 % (0-9); PLATELET COUNT 230 K/uL (130-400); RED CELL DISTRIBUTION WIDTH 15.2 % (11.5-14.5); WHITE BLOOD COUNT W/O DIFF 4.5 K/uL (4.2-12.2)
[2017-03-01 10:07] LABS: MEAN CORPUSCULAR HEMOGLOBIN 32.3 pg (27-33)
[2017-03-01 10:16] LABS: ALB/GLOB RATIO 1.1 (1.1-1.8); ALBUMIN 3.2 gm/dL (3.5-5.0); BILIRUBIN,TOTAL 1.71 mg/dL (0.2-1.3); CREATININE 1.3 mg/dL (0.66-1.25)
--- NOTE | 2017-03-01 10:17 | Rehab Discharge Summary ---
Patient Information - Patient Information Diagnosis: Deconditioning due to lengthy stay in hospital for acute pancreatitis Ordered Treatment: PT Evaluate and Treat Surgery: No History: Detail (Patient admitted secondary to deconditioning after stay at [facility] lasting 02/05/17-02/23/17. States he became acutely ill day after a islam event at which he ate quite a bit.) Past Medical/Surgical Hx: PAST MEDICAL/SURGICAL HISTORY Past Surgical History KNEE SCOPE-Right NASAL SX R RTC REPAIR (REFLEX SYMPATHETIC DYSTOPHY) C-SCOPE PMH - Respiratory Hx Respiratory Disorders No PMH - Cardiovascular Hx Cardiovascular Disorders Yes Hx Congestive Heart Failure Yes Hx Hypertension Yes: CONTROLLED Hx of Migraines Yes: since onset of topamax has very few magallanes Comment: high cholesterol PMH - Neuro Hx Neurological Disorders Yes Hx Neuropathy Yes: feet Hx Seizures No PMH - GI Hx Gastrointestinal Disorders Yes Comment: ULCERATIVE COLITIS PMH - Hx Genitourinary Disorders No Comment: occ leakage PMH - Endocrine Hx Endocrine Disorders No PMH - Musculoskeletal Hx Musculoskeletal Disorders Yes Hx Arthritis Yes: hips, knees and hands PMH - Psych Hx Psychiatric Problems No PMH - Hematology/Oncology Hx Hematology/Oncology Yes Disorders Hx Cancer Yes: skin-LLE melanoma Premorbid Status: Detail (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 He amb. without device and has no AD at home.) Social History: Detail (Patient lives with spouse in a 1-story house with finished basement and 2-3 steps to enter home. Laundry is in the basement but spouse is responsible for this. Patient does use basement. There is a bathroom w / walk-in shower in the basement but patient primarily uses the tub/shower combo with curtain enclosure on main level. Patient stands to shower using fixed shower head. There are grab bars in shower but none around standard toilet. Patient is responsible for outdoor yard work, snow removal, and lawn care. Patient has supportive , daughter (lives in [place]), and son (lives in [place], [place]).) Precautions: [place], Fall - Time With Patient Total Time Spent With Patient (Min): 15 Treatment Procedures: Detail (Re-evaluation) Subjective Information - Subjective Information Per Patient (The patient had no complaints besides still feeling "not quite back to his previous physical level ie: doing yard work etc.") Objective Data - Mental Status Patient Orientation: Oriented x3 - Visual Perception Appears within normal limits for therapeutic activities - ROM Within normal limits - Strength/Tone Not within normal limits (LE strength: bilaterally hip flexors and hip abductors 4+/5, hip adductors 4/5, hip extensors 4-/5, knee and ankle musculature 4+ to 5/5.) - Coordination Appears within normal limits for therapeutic activities - Bed Mobility Independent (The patient is indpendent with supine to and from sit and scooting up in bed.) - Transfers Independent (Independent sit to and from stand transfer, toilet and tub transfer.) - Balance Balance Sitting: Good Balance Standing: Good - Gait Detail (The patient ambulates independently without assistive device distances of 200 feet plus. The patient ambulated on 3 steps with use of one railing using reciprocal gait pattern independently.) Therapy Assessment - Therapy Assessment Detail (The patient was independent with all mobility and had improvements in LE strength. The patient's expressed interest in a tub seat for their tub. [facility] [employer] was notified and was to provide phone numbers for loan closet and equipment vendors.) Patient Education - Patient Education Teaching Topic: Exercise/Activity (LE and UE strengthening exercise HEP review.) Response: Return Demonstration Teaching Method: Discussion, Handout Teaching Recipient: Patient, Family Barriers To Learning: Age Related Problem List - Problem List Physical Therapy Problem List: Detail (1. Proximal LE weakness 2. Impaired activity tolerance 3. Difficulty w/higher level balance tasks.) Occupational Therapy Problem List: Detail (1. Decreased endurance to complete ADLs 2. BUE weakness 3. B Gross grasp weakness) Goals - Goals Physical Therapy Goals: GOALS MET: 1. Independent w/basic HEP. 3. Safely and independently ambulate 300 feet w/o assistive device, w/o undue fatigue. 4. Tolerate 20 minutes of therapeutic exercise w/o undue fatigue. GOAL PARTIALLY MET: 2. Exhibit 4+/5 strength in B proximal LE muscle groups for stability w/ambulation. Occupational Therapy Goals: 1. Patient to be Ind. with LB drsg. 2. Patient to complete ADLs w/o c/o fatigue or need for RB's. 3. Patient to be Ind w/ BUE HEP Plan - Plan Physical Therapy Plan: The patient is being discharged to home and is to continue with HEP to increase LE strength. Occupational Therapy Plan: Patient to be seen by OT to further evaluate safety with ADLs and for establishment of BUE HEP. Patient to be seen by OT 2-4x a week M-F.
--- NOTE | 2017-03-01 12:47 | Discharge Summary ---
Providers Discharge Summary Date: 03/01/17 Date of admission: 02/23/17 14:31 Expected Date of Discharge: 03/01/17 Attending physician: MOINQUE ORTIZ Primary care physician: ENRIQUE ROSENTHAL D.O. Physical Exam - Vital Signs Vital Signs: Vital Signs - Last 24 Hrs Temp Pulse Resp BP Pulse Ox 03/01/17 09:43 121/68 03/01/17 06:47 98.3 F 79 16 127/80 95 - General General Appearance: Alert, Oriented x3, No acute distress Limitations: No limitations - Head Head exam: Atraumatic - Eye Eye exam: Normal appearance, Periorbital swelling - ENT ENT exam: Normal exam, Mucous membranes moist, Normal external ear exam, Normal orophraynx, TM's normal bilaterally Ear exam: Normal external inspection. negative: External canal tenderness Nasal Exam: Normal inspection. negative: Discharge, Sinus tenderness Mouth exam: Normal external inspection, Tongue normal Teeth exam: Normal inspection. negative: Dental caries Throat exam: Normal inspection. negative: Tonsillar erythema, Tonsillar exudate - Respiratory Respiratory exam: Normal lung sounds bilaterally - Cardiovascular Cardiovascular Exam: Regular rate, Normal rhythm, Normal heart sounds Peripheral Pulses: 2+: Dorsalis Pedis (R), Dorsalis Pedis (L) - GI/Abdominal GI/Abdominal exam: Soft, Normal bowel sounds. negative: Distended, Tenderness - Rectal Rectal exam: Deferred - exam: Deferred - Extremities Extremities exam: Normal inspection, Full ROM, Normal capillary refill. negative: Tenderness - Back Back exam: Reports: Normal inspection, Full ROM. Denies: Muscle spasm, Rash noted, Tenderness - Neurological Neurological exam: Alert, CN II-XII intact, Oriented X3 - Psychiatric Psychiatric exam: Normal affect, Normal mood - Skin Skin exam: Dry, Intact, Normal color, Warm Hospitalization - Hospitalization Admission Diagnosis: Deconditioning due to Biliary Pancreatitis - Problem List (1) Generalized weakness Current Visit: Yes Status: Acute Base Code: R53.1 - WEAKNESS Comment: 03/01- improved. 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 - PT/OT feel patient is able to discharge home without further therapy services. he is independent with ambulation and ADL's. - follow up with Dr Carmen in on 03/10/[address] Alfonso 03/13/17 for repeat EGD/ERCP and potential for lap cherie (2) Protein calorie malnutrition Current Visit: Yes Status: Acute Base Code: E46 - UNSPECIFIED PROTEIN- CALORIE MALNUTRITION Comment: 03/01/17- Patient still having poor appetite but improved somewhat. He is adhering to low fat diet. Explained that he will likely need definitive treatment with ERCP and/or lap cherie to have complete resolution of symptoms. He is scheduled to follow up with gi and surgery to discuss those options. -TP improved from 5.8 to 6.0 and albumin up to 3.2 from 3.0 -will order repeat outpatient labs to have done prior to specialist appointments (3) Pancreatitis Current Visit: No Status: Acute Discharge Diagnosis: Chronicity: acute Pancreatitis type: other Acute pancreatitis complication: unspecified Qualified Code(s): K85.80 - Other acute pancreatitis without necrosis or infection Base Code: K85.90 - ACUTE PANCREATITIS WITHOUT NECROSIS OR INFECTION, UNSP Comment: 03/01/17-improved. lipase stable at 218. Tbilli stable at 1.71 down from 1.91. potassium down to 3.4 since starting lasix 20mg daily. not currently on potassium supplement. -will start 10mg potassium daily to be taken along with lasix -repeat CMP as outpatient. - Hospitalization Course Disposition: Home, Self-Care Reason For Discharge/Transfer: Medical Stability Hospital Course: 81 y/o male admitted to [facility] for deconditioning following hospitalization for acute biliary pancreatitis and mesenteric aneurysm rupture. Past medical history includes CHF, HTN, migraines, peripheral neuropathy, UC, occasional urine incontinence, arthritis, LLE melanoma Past Surgical History KNEE SCOPE-Right NASAL SX R RTC REPAIR (REFLEX SYMPATHETIC DYSTOPHY) C-SCOPe Prior to arrival was transferred form [facility] ED 02/05/17 for abdominal pain and significantly elevated lipase. While at [facility] Megan Macario was diagnosed with acute pancreatitis and gall stones per CT scan. Initial lipase 18,000. Does not drink ETOH, has never had pancreatitis before, is not diabetic. 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 His stay was complicated by episode of hypotension and sudden drop in Hgb. 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 Bleeding and Hgb improved spontaneously. Was nutritionally supplemented with TPN and advanced to low fat diet. Underwent EGD 02/22 for increase in bilirubin and lipase levels which showed 3 small ulcers in stomach that were biopsied and sent to pathology. Plan to repeat EGD with EUS/ ERCP in 2 week with potential of lap cherie. Labs at discharge Hgb 9.3, Lipase 111, alk phos 278, total bilirubin 2.o, protein 4.5, albumin 2.6, AST 64, ALT 68, BUN 22, Cr 1.02 Goal of care: therapy with return to prevoius independent function at home with his . 02/24/17- resting in bed comfortably, denies pain. Does report continues to have loose stools twice daily, appetite is slowly improving but not back to 100%. Is feeling weak but reports overall feels better day by day. 03/01/17- Patient states he is doing well today. Says he still has some decreased appetite but no abdominal pain. Having normal BM. no nausea/vomiting. PCP: Dr Rosenthal General surgeon: Dr Carmen Abnormal Labs: Abnormal Lab Results 02/27/17 02/27/17 02/28/17 Range/Units 06:04 06:04 06:06 RBC 3.32 L (4.40-5.70) M/uL Hgb 10.8 L (14.0-18.0) gm/dl Hct 33.4 L (42.0-52.0) % MCV 100.6 H (81-97) fl MCHC (32-36) g/dl RDW 15.3 H (11.5-14.5) % Monocytes % 9.6 H (0-9) % Potassium 3.3 L (3.5-5.1) mmol/L Chloride 111 H 110 H (98-107) mmol/L Anion Gap 3.6 L 5.9 L (7-16) Creatinine (0.66-1.25) mg/dL Random Glucose (70-110) mg/dL Total Bilirubin 1.91 H 1.65 H (0.2-1.3) mg/dL Alkaline Phosphatase 217 H 193 H (38-126) U/L Total Protein 5.8 L 5.4 L (6.3-8.2) gm/dL Albumin 3.0 L 2.8 L (3.5-5.0) gm/dL Prealbumin (18-45) mg/dL 02/28/17 03/01/17 03/01/17 Range/Units 06:06 09:56 09:56 RBC 3.40 L (4.40-5.70) M/uL Hgb 11.0 L (14.0-18.0) gm/dl Hct 34.5 L (42.0-52.0) % MCV 101.5 H (81-97) fl MCHC 31.9 L (32-36) g/dl RDW 15.2 H (11.5-14.5) % Monocytes % 10.9 H (0-9) % Potassium 3.4 L (3.5-5.1) mmol/L Chloride 108 H (98-107) mmol/L Anion Gap 5.0 L (7-16) Creatinine 1.3 H (0.66-1.25) mg/dL Random Glucose 136 H (70-110) mg/dL Total Bilirubin 1.71 H (0.2-1.3) mg/dL Alkaline Phosphatase 183 H (38-126) U/L Total Protein 6.0 L (6.3-8.2) gm/dL Albumin 3.2 L (3.5-5.0) gm/dL Prealbumin 9 L (18-45) mg/dL Condition at Discharge: (2) Stable Discharge Medications - Discharge Medications Prescriptions: Amlodipine Besylate [Norvasc] 10 mg PO QHS #60 tab Furosemide [Lasix] 20 mg PO DAILY #30 tab Losartan Potassium 100 mg PO DAILY #30 tablet Pantoprazole Sodium [Protonix] 40 mg PO BID #60 tab Potassium Chloride 10 meq PO DAILY #30 tablet.er Home Medications: Ambulatory Orders Aspirin [Ecotrin] 325 mg PO BID 02/04/17 [Last Taken Unknown] Atorvastatin Calcium [Lipitor] 10 mg PO QHS 02/04/17 [Last Taken Unknown] Calcium Carbonate/Vitamin D3 [Calcium 500-Vit D3 600 Tablet] 1 each PO DAILY 11/18 [Last Taken Unknown] Mesalamine [Apriso] 0.375 gm PO BID 02/04/17 [Last Taken Unknown] Thiamine HCl [Vitamin B-1] 100 mg PO DAILY 02/04/17 [Last Taken Unknown] Tolterodine Tartrate [Detrol LA] 4 mg PO DAILY 02/04/17 [Last Taken Unknown] Topiramate [Topamax] 75 mg PO DAILY 02/04/17 [Last Taken Unknown] Vit C/Vit E AC/Lut/Copper/Zinc [PreserVision Lutein Softgel] 1 tab PO DAILY 11/18 [Last Taken Unknown] Vitamin E 400 unit PO DAILY 02/04/17 [Last Taken Unknown] Amlodipine Besylate [Norvasc] 10 mg PO QHS #60 tab 03/01/17 [Last Taken Unknown] Furosemide [Lasix] 20 mg PO DAILY #30 tab 03/01/17 [Last Taken Unknown] Losartan Potassium 100 mg PO DAILY #30 tablet 03/01/17 [Last Taken Unknown] Pantoprazole Sodium [Protonix] 40 mg PO BID #60 tab 03/01/17 [Last Taken Unknown ] Potassium Chloride 10 meq PO DAILY #30 tablet.er 03/01/17 [Last Taken Unknown] Discharge Plan - Discharge Instructions Activity at Discharge: As Per Physical Therapy Diet at Discharge: Advance to Usual Diet, Low Fat, Low Cholesterol Instructions: Low Fat Diet (DC), Hypertension (DC) Additional Instructions: Continue Low fat diet with low fat snack choices-use handouts provided for ideas Continue losartan 100mg daily Continue norvasc 10mg daily Continue lasix 20mg daily Start potassium 10meq daily while taking the lasix Please have labs done prior to follow up appointments with specialists and bring copy to appointment. Please call back with any questions or concerns Activity as tolerated Follow up with Dr Carmen, general surgeon, 03/10/17 at 2pm. His office is at [address] [address] in [place] - take your insurance cards, medication list, and identification. Follow up with MAME Mary, 03/13/17 at 3:30pm here at [facility] Follow up with Dr Rosenthal 03/15/17 at 10:45am
--- NOTE | 2017-03-03 10:15 | Rehab Discharge Summary ---
Patient Information - Patient Information Diagnosis: Deconditioning due to lengthy stay in hospital for acute pancreatitis Ordered Treatment: OT Evaluate and Treat Surgery: No History: Detail (Patient admitted secondary to deconditioning after stay at [facility] lasting 02/05/17-02/23/17. States he became acutely ill day after a sabianist event at which he ate quite a bit.) Past Medical/Surgical Hx: PAST MEDICAL/SURGICAL HISTORY Past Surgical History KNEE SCOPE-Right NASAL SX R RTC REPAIR (REFLEX SYMPATHETIC DYSTOPHY) C-SCOPE PMH - Respiratory Hx Respiratory Disorders No PMH - Cardiovascular Hx Cardiovascular Disorders Yes Hx Congestive Heart Failure Yes Hx Hypertension Yes: CONTROLLED Hx of Migraines Yes: since onset of topamax has very few magallanes Comment: high cholesterol PMH - Neuro Hx Neurological Disorders Yes Hx Neuropathy Yes: feet Hx Seizures No PMH - GI Hx Gastrointestinal Disorders Yes Comment: ULCERATIVE COLITIS PMH - Hx Genitourinary Disorders No Comment: occ leakage PMH - Endocrine Hx Endocrine Disorders No PMH - Musculoskeletal Hx Musculoskeletal Disorders Yes Hx Arthritis Yes: hips, knees and hands PMH - Psych Hx Psychiatric Problems No PMH - Hematology/Oncology Hx Hematology/Oncology Yes Disorders Hx Cancer Yes: skin-LLE melanoma Premorbid Status: Detail (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 He amb. without device and has no AD at home.) Social History: Detail (Patient lives with spouse in a 1-story house with finished basement and 2-3 steps to enter home. Laundry is in the basement but spouse is responsible for this. Patient does use basement. There is a bathroom w / walk-in shower in the basement but patient primarily uses the tub/shower combo with curtain enclosure on main level. Patient stands to shower using fixed shower head. There are grab bars in shower but none around standard toilet. Patient is responsible for outdoor yard work, snow removal, and lawn care. Patient has supportive , daughter (lives in [place]), and son (lives in [place], [place]).) Precautions: [place], Fall Objective Data - Mental Status Patient Orientation: Oriented x3 - Visual Perception Appears within normal limits for therapeutic activities - ROM Within normal limits - Strength/Tone Within normal limits - Coordination Appears within normal limits for therapeutic activities - Bed Mobility Independent - Transfers Independent - Balance Balance Sitting: Good Balance Standing: Good - ADL's/IADL's Detail (Patient is Ind w/ all ADLs.) Therapy Assessment - Therapy Assessment Detail (Patient has made excellent progress in therapy. He is Ind and safe with all ADLs. He has a supportive at home that is able to assist him should any issues come up. Patient was issued and demo'd independence with BUE PRE HEP. Patient ready for D/C from OT.) Problem List - Problem List Physical Therapy Problem List: Detail (1. Proximal LE weakness 2. Impaired activity tolerance 3. Difficulty w/higher level balance tasks.) Occupational Therapy Problem List: Detail (1. Decreased endurance to complete ADLs 2. BUE weakness 3. B Gross grasp weakness) Goals - Goals Physical Therapy Goals: GOALS MET: 1. Independent w/basic HEP. 3. Safely and independently ambulate 300 feet w/o assistive device, w/o undue fatigue. 4. Tolerate 20 minutes of therapeutic exercise w/o undue fatigue. GOAL PARTIALLY MET: 2. Exhibit 4+/5 strength in B proximal LE muscle groups for stability w/ambulation. Occupational Therapy Goals: GOALS MET: 1. Patient to be Ind. with LB drsg. 2. Patient to complete ADLs w/o c/o fatigue or need for RB's. 3. Patient to be Ind w/ BUE HEP Plan - Plan Physical Therapy Plan: The patient is being discharged to home and is to continue with HEP to increase LE strength. Occupational Therapy Plan: Patient d/c'd home on 03/01/17 with BUE HEP for continued improvement in UE strength and for cont'd increased endurance to complete ADLs. No further OT needed at this time.
== END 2017-03-01 14:12 | disposition home or self-care (01) | DRG 948 ==
LOC: MEDSURG 02-23 14:31
PROVIDERS: ADMIT Family Medicine; ATTEND Family Medicine
DX: R53.1 Weakness (principal); E46 Unspecified protein-calorie malnutrition; I10 Essential (primary) hypertension
CPT/HCPCS: 80053; 83690; 85025; 97110; 97165; 97530; 99306; 99316

== ENCOUNTER 2018-05-06 14:44 | Emergency (ER) | payer MEDICARE ==
--- NOTE | 2018-05-06 15:20 | Emergency Department Record ---
History of Present Illness - General Chief complaint: Extremity Problem Stated complaint: LT FORE ARM WOUND CHECK, PAIN Time Seen by Provider: 05/06/18 15:13 Source: Patient, RN notes reviewed Mode of Arrival: Ambulatory - History of Present Illness Initial comments: lesion removed from the left forearm may [address] Sebastian Dutta and he has sutures and he is concerned because it is swollen and red but looks good for day 5. No drainage Onset/Timin -: Days(s) Location: Left, Forearm History of Same: No Severity scale (1-10): 5 Quality: Burning Consistency: Constant Improves with: Nothing Worsens with: Palpation Associated Symptoms: Denies other symptoms - Related Data Previous Rx's Medication Instructions Recorded Amlodipine Besylate [Norvasc] 10 mg PO QHS #60 tab 03/01/17 Furosemide [Lasix] 20 mg PO DAILY #30 tab 03/01/17 Losartan Potassium 100 mg PO DAILY #30 tablet 03/01/17 Pantoprazole Sodium [Protonix] 40 mg PO BID #60 tab 03/01/17 Potassium Chloride 10 meq PO DAILY #30 tablet.er 03/01/17 Cephalexin [Keflex] 500 mg PO TID #30 cap 05/06/18 Allergies Allergy/AdvReac Type Severity Reaction Status Date / Time No Known Drug Allergies Allergy Verified 08/13/15 16:20 Travel Screening - Travel/Exposure Within Last 30 Days Have you traveled within the last 30 days?: No Review of Systems Reviewed: No additional complaints except as noted below Constitutional: Reports: As per HPI. Denies: Chills, Fever, Malaise, Night sweats, Weakness, Weight change Eyes: Reports: As per HPI. Denies: Eye discharge, Eye pain, Photophobia, Vision change ENT: Reports: As per HPI. Denies: Congestion, Dental pain, Ear pain, Epistaxis , Hearing loss, Throat pain Respiratory: Reports: As per HPI. Denies: Cough, Dyspnea, Hemoptysis, Stridor, Wheezes Cardiovascular: Reports: As per HPI. Denies: Arrhythmia, Chest pain, Dyspnea on exertion, Edema, Murmurs, Orthopnea, Palpitations, Paroxysmal nocturnal dyspnea, Rheumatic Fever, Syncope Endocrine: Reports: As per HPI. Denies: Fatigue, Heat or cold intolerance, Polydipsia, Polyuria Gastrointestinal: Reports: As per HPI. Denies: Abdominal pain, Constipation, Diarrhea, Hematemesis, Hematochezia, Melena, Nausea, Vomiting Genitourinary: Reports: As per HPI. Denies: Dysuria, Frequency, Hematuria, Incontinence, Retention, Testicular pain, Testicular mass, Urgency Musculoskeletal: Reports: As per HPI. Denies: Arthralgia, Back pain, Gout, Joint swelling, Myalgia, Neck pain Skin: Reports: As per HPI. Denies: Bruising, Change in color, Change in hair/ nails, Lesions, Pruritus, Rash Neurological: Reports: As per HPI. Denies: Abnormal gait, Confusion, Headache, Numbness, Paresthesias, Seizure, Tingling, Tremors, Vertigo, Weakness Psychiatric: Reports: As per HPI. Denies: Anxiety, Auditory hallucinations, Depression, Homicidal thoughts, Suicidal thoughts, Visual hallucinations Hematological/Lymphatic: Reports: As per HPI. Denies: Anemia, Blood Clots, Easy bleeding, Easy bruising, Swollen glands Past Medical History - SOCIAL HISTORY Smoking Status: Former smoker - RESPIRATORY Hx Respiratory Disorders: No - CARDIOVASCULAR Hx Cardio Disorders: Yes Hx CHF: Yes Hx Hypertension: Yes (CONTROLLED) Comment:: high cholesterol - NEURO Hx Neuro Disorders: Yes Hx Seizures: No - GI Hx GI Disorders: Yes Comment:: ULCERATIVE COLITIS - Hx Genitourinary Disorders: No Comment:: occ leakage - ENDOCRINE Hx Endocrine Disorders: No - MUSCULOSKELETAL Hx Musculoskeletal Disorders: Yes Hx Arthritis: Yes (hips, knees and hands) - PSYCH Hx Psych Problems: No - HEMATOLOGY/ONCOLOGY Hx Hematology/Oncology Disorders: Yes Hx Cancer: Yes (skin-LLE melanoma) Family Medical History Any Significant Family History?: Yes Hx Heart Disease: Father, Mother Hx Stroke: Mother Physical Exam - General General Appearance: Alert, Oriented x3, Cooperative, No acute distress - Head Head exam: Normal inspection - Eye Eye exam: Normal appearance, PERRL Pupils: Normal accommodation - ENT ENT exam: Normal exam, Mucous membranes moist, Normal external ear exam, Normal orophraynx, TM's normal bilaterally Ear exam: Normal external inspection. negative: External canal tenderness Nasal Exam: Normal inspection. negative: Discharge, Sinus tenderness Mouth exam: Normal external inspection, Tongue normal Teeth exam: Normal inspection. negative: Dental caries Throat exam: Normal inspection. negative: Tonsillar erythema, Tonsillar exudate - Neck Neck exam: Normal inspection, Full ROM. negative: Tenderness - Respiratory Respiratory exam: Normal lung sounds bilaterally. negative: Respiratory distress - Cardiovascular Cardiovascular Exam: Regular rate, Normal rhythm, Normal heart sounds - GI/Abdominal GI/Abdominal exam: Soft, Normal bowel sounds. negative: Tenderness - Rectal Rectal exam: Deferred - exam: Deferred - Extremities Extremities exam: Normal inspection, Full ROM, Normal capillary refill. negative: Tenderness - Back Back exam: Reports: Normal inspection, Full ROM. Denies: Muscle spasm, Rash noted, Tenderness - Neurological Neurological exam: Alert, Normal gait, Oriented X3, Reflexes normal - Psychiatric Psychiatric exam: Normal affect, Normal mood - Skin Skin exam: Dry, Other (incision with redness around the edges and he states swelling but I don't see much swelling.) Course Vital Signs 05/06/18 14:46 Temperature 97.8 F Pulse Rate 81 Respiratory 18 Rate Blood Pressure 172/117 Pulse Ox 96 Medical Decision Making - Data Complexity MDM Data: Labs Ordered and/or Reviewed (wbc 6,400. k3.2) - Lab Data Result diagrams: 05/06/18 15:40 05/06/18 15:40 Disposition Clinical Impression: Cellulitis of forearm, left Condition: (1) Good Instructions: Cellulitis (ED) Additional Instructions: follow up with Dr. Dutta in 3 -4 days Prescriptions: Cephalexin [Keflex] 500 mg PO TID #30 cap Forms: Patient Portal Access Time of Disposition: 16:35 Quality - Quality Measures Quality Measures: N/A - Blood Pressure Screening Does Patient Have Any of the Following: No, Active Dx of HTN Blood Pressure Classification: Hypertensive Reading Systolic Measurement: 172 Diastolic Measurement: 117 Screening for High Blood Pressure: Patient Exclusion, Hx of HTN [[id number]]
[2018-05-06 15:49] LABS: BASO % 0.6 % (0-6); EOS % 1.9 % (0-6); GRAN % 61.3 % (47-80); HEMATOCRIT 42.6 % (42.0-52.0); HEMOGLOBIN 14.3 gm/dl (14.0-18.0); MEAN CELL VOLUME 99.8 fl (81-97); MEAN CORPUSCULAR HGB CONC 33.6 g/dl (32-36); MEAN PLATELET VOLUME 9.4 fl (7.4-10.4); MONO % 8.2 % (0-9); PLATELET COUNT 228 K/uL (130-400); RED BLOOD COUNT 4.27 M/uL (4.40-5.70); RED CELL DISTRIBUTION WIDTH 12.8 % (11.5-14.5); WHITE BLOOD COUNT W/O DIFF 6.4 K/uL (4.2-12.2)
[2018-05-06 15:51] LABS: MEAN CORPUSCULAR HEMOGLOBIN 33.4 pg (27-33)
[2018-05-06 16:04] LABS: BLOOD UREA NITROGEN 22 mg/dL (8-23); CREATININE 1.2 mg/dL (0.7-1.2); EST GLOMERULAR FILTRATION RATE > 60 mL/min
[2018-05-06 16:07] LABS: GLUCOSE,RANDOM 91 mg/dL (74-109)
== END 2018-05-06 16:43 | disposition home or self-care (01) ==
LOC: ER 14:44
DX: L03.114 Cellulitis of left upper limb (principal); E87.6 Hypokalemia; I50.9 Heart failure, unspecified; I10 Essential (primary) hypertension; Z87.891 Personal history of nicotine dependence
CPT/HCPCS: 80048; 85025; 86140; 99283; 99284